=== PATIENT | male | born 1975 | race Two or more races ===

== ENCOUNTER 2021-11-09 18:38 | Emergency (ER) | payer SELFPAY ==
--- NOTE | 2021-11-09 19:30 | NUR ---
CALLED PT FOR TRIAGE NO ANSWER
--- NOTE | 2021-11-09 19:41 | NUR ---
CALLED PT FOR TRIAGE NO ANSWER
== END 2021-11-09 20:00 | disposition left against medical advice (07) ==
LOC: ER 18:42
DX: Z53.21 Procedure and treatment not carried out due to patient leaving prior to being seen by health care provider (principal)

== ENCOUNTER 2022-01-15 16:03 | Emergency (ER) | payer OTHER ==
[~2022-01-15] VITALS: Ht 170.2 cm; Wt 95.3 kg
[2022-01-15 17:18] LABS: BASOPHILS # (AUTO) 0.1 K/uL (0.0-0.2); BASOPHILS % (AUTO) 0.9 % (0.0-2.0); EOSINOPHILS % (AUTO) 3.2 % (0.0-6.0); HEMATOCRIT 43 % (39-51); HEMOGLOBIN 14.5 g/dL (13.5-17.5); LYMPHOCYTES # (AUTO) 1.4 K/uL (0.8-4.8); LYMPHOCYTES % (AUTO) 22.3 % (20.0-44.0); MEAN CORPUSCULAR HGB CONC 34 g/dl (31.0-36.0); MEAN CORPUSCULAR VOLUME 95 fL (80-96); MONOCYTES # (AUTO) 0.5 K/uL (0.1-1.30); MONOCYTES % (AUTO) 7.5 % (2.0-12.0); NEUTROPHILS # (AUTO) 4.3 K/uL (1.8-8.9); NEUTROPHILS % (AUTO) 66.1 % (43.0-81.0); PLATELET COUNT (AUTO) 339 K/uL (150-450); RED BLOOD CELL COUNT(AUTO) 4.54 MIL/uL (4.5-6.0); WHITE BLOOD COUNT (AUTO) 6.4 K/uL (4.3-11.0)
[2022-01-15 17:44] LABS: CALCIUM, SERUM 8.9 mg/dL (8.5-10.1); CARBON DIOXIDE 32 mmol/L (21-32); CHLORIDE 102 mmol/L (98-107); CREATININE 0.9 mg/dL (0.6-1.3); GLUCOSE 97 mg/dL (74-106); POTASSIUM 3.4 mmol/L (3.5-5.1); SODIUM SERUM 140 mmol/L (136-145); UREA NITROGEN, BLOOD 12 mg/dL (7-18)
[2022-01-15 17:50] LABS: ALANINE AMINOTRANSFERASE 23 U/L (12-78); ALBUMIN 4.2 g/dL (3.4-5.0); ALCOHOL, BLOOD < 3 mg/dL (0-0); ALKALINE PHOSPHATASE 133 U/L (46-116); ASPARTATE AMINOTRANSFERASE 19 U/L (15-37); BILIRUBIN,DIRECT 0.1 mg/dL (0.0-0.2); BILIRUBIN,TOTAL 0.5 mg/dL (0.2-1.0); TOTAL PROTEIN, SERUM 8.4 g/dL (6.4-8.2)
[2022-01-15 17:53] LABS: ACETAMINOPHEN < 2 ug/ml (10-30)
[2022-01-15] MEDS ORDERED: POTASSIUM CHLORIDE 20 MEQ TAB.PRT.SR PO ONE ×2 (18:30→19:59)
[2022-01-15 19:55] LABS: BILIRUBIN,URINE NEGATIVE (NEGATIVE); COLOR,URINE YELLOW (YELLOW); LEUKOCYTE ESTERASE ,URINE NEGATIVE (NEGATIVE); NITRITE, URINE NEGATIVE (NEGATIVE); PH,URINE 6.5 (5.0-8.0); PROTEIN,URINE NEGATIVE (NEGATIVE); UGLUCOSE NEGATIVE (NEGATIVE); UROBILINOGEN,URINE 0.2 EU/dL (0.2)
--- NOTE | 2022-01-15 20:12 | NUR ---
PT RECEIVED IN ROOM ALREADY. AAOX4. NOT IN RESP DISTRESS. AMBULATORY. CAME IN FOR VOLUNTARY ADMISSION TP [[facility] FOR SUICIDAL THOUGHTS WITH PLAN TO JUMP INTO TRAFFIC. PT STATES THAT HE IS FEELING DEPRESSED. PT IS PLACED IN GOWN, BELONGINGS IN LOCKER AND SITTER WITHON SIGHT.
--- NOTE | 2022-01-16 05:41 | NUR ---
PT ACCEPTED AT [facility] UNDER THE CARE OD BELINDA WALTERS. CALL [phone]
--- NOTE | 2022-01-16 05:42 | NUR ---
TRANSPORTATION REQUESTED FROM [facility].
--- NOTE | 2022-01-16 05:43 | NUR ---
PER AISSATOU AT [facility] , PLEASE CALL [phone] ext. [phone] UNIT 1 FOR REPORT
--- NOTE | 2022-01-16 06:04 | NUR ---
REPORT GIVEN TO ROBB AT [facility]
[2022-01-16 08:15] VITALS: BP 136/88
--- NOTE | 2022-01-16 09:50 | NUR ---
[facility] AT BEDSIDE FOR AUDIT OFFICER.
== END 2022-01-16 09:51 ==
LOC: ER 16:05
DX: R45.851 Suicidal ideations (principal); F20.9 Schizophrenia, unspecified; Z20.822 Contact with and (suspected) exposure to COVID-19; Z91.51 Personal history of suicidal behavior; F17.210 Nicotine dependence, cigarettes, uncomplicated; Z59.00 Homelessness unspecified; E87.6 Hypokalemia; F32.A Depression, unspecified
CPT/HCPCS: 36415; 80048; 80076; 80143; 80307; 80320; 81003; 85025; 87426; 99285; C9803; G0480

== ENCOUNTER 2022-03-06 03:39 | Emergency (ER) | payer OTHER ==
[~2022-03-06] VITALS: Ht 167.6 cm; Wt 77.1 kg
--- NOTE | 2022-03-06 04:12 | NUR ---
CALLED TO TRIAGE NO ANSWER.
--- NOTE | 2022-03-06 05:30 | NUR ---
PATIENT BIBSELF C/O + SI WITH PLAN TO RUN INTO TRAFFIC, WANTING VOL PSYCH ADMIT. PATIENT IS A/O X 4, RR EVEN AND UNLABORED, NO SOB NOTED, VSS. PATIENT TAKEN TO ER BED 18. PATIENTS BELONGINGS COLLECTED AND PLACED IN LOCKER. PATIENT PLACED IN HOSPITAL GOWN. PATIENT SKIN INTACT, AMBULATES WITH STEADY GAIT. WILL CONTINUE TO MONITOR.
--- NOTE | 2022-03-06 05:45 | NUR ---
PT UNABLE TO PROVIDE URINE, WILL FOLLOW UP
--- NOTE | 2022-03-06 05:45 | NUR ---
COVID SWAB COLLECTED
[2022-03-06 06:15] LABS: BASOPHILS # (AUTO) 0.1 K/uL (0.0-0.2); EOSINOPHILS % (AUTO) 1.7 % (0.0-6.0); HEMATOCRIT 43 % (39-51); HEMOGLOBIN 14.4 g/dL (13.5-17.5); LYMPHOCYTES # (AUTO) 1.5 K/uL (0.8-4.8); LYMPHOCYTES % (AUTO) 27.6 % (20.0-44.0); MEAN CORPUSCULAR HGB CONC 34 g/dl (31.0-36.0); MEAN CORPUSCULAR VOLUME 94 fL (80-96); MONOCYTES # (AUTO) 0.6 K/uL (0.1-1.30); MONOCYTES % (AUTO) 10.4 % (2.0-12.0); NEUTROPHILS # (AUTO) 3.2 K/uL (1.8-8.9); NEUTROPHILS % (AUTO) 59.3 % (43.0-81.0); PLATELET COUNT (AUTO) 307 K/uL (150-450); RED BLOOD CELL COUNT(AUTO) 4.54 MIL/uL (4.5-6.0); WHITE BLOOD COUNT (AUTO) 5.4 K/uL (4.3-11.0)
[2022-03-06 06:32] LABS: ALANINE AMINOTRANSFERASE 24 U/L (12-78); ALBUMIN 3.8 g/dL (3.4-5.0); ALKALINE PHOSPHATASE 129 U/L (46-116); ASPARTATE AMINOTRANSFERASE 28 U/L (15-37); BILIRUBIN,DIRECT 0.1 mg/dL (0.0-0.2); BILIRUBIN,TOTAL 0.6 mg/dL (0.2-1.0); CALCIUM, SERUM 9.1 mg/dL (8.5-10.1); CARBON DIOXIDE 31 mmol/L (21-32); CHLORIDE 100 mmol/L (98-107); CREATININE 0.9 mg/dL (0.6-1.3); GLUCOSE 98 mg/dL (74-106); SODIUM SERUM 136 mmol/L (136-145); TOTAL PROTEIN, SERUM 8.1 g/dL (6.4-8.2); UREA NITROGEN, BLOOD 10 mg/dL (7-18)
[2022-03-06 06:35] LABS: ACETAMINOPHEN < 0 ug/ml (10-30); ALCOHOL, BLOOD < 3 mg/dL (0-0)
--- NOTE | 2022-03-06 07:04 | NUR ---
URINE COLLECTED SENT TO LAB
[2022-03-06 07:18] LABS: BILIRUBIN,URINE NEGATIVE (NEGATIVE); COLOR,URINE YELLOW (YELLOW); LEUKOCYTE ESTERASE ,URINE NEGATIVE (NEGATIVE); NITRITE, URINE NEGATIVE (NEGATIVE); PROTEIN,URINE NEGATIVE (NEGATIVE); UGLUCOSE NEGATIVE (NEGATIVE); UROBILINOGEN,URINE 0.2 EU/dL (0.2)
--- NOTE | 2022-03-06 09:00 | NUR ---
Atiya hameed in [facility] - 03/06/22 at 1315 by NUBIA Patient verbalized "i am not suicidal".
--- NOTE | 2022-03-06 09:04 | NUR ---
Note yoseph in ED - 03/06/22 at 1315 by NUBIA Patient given written and verbal discharge instructions. Patient verbalizes understanding of instructions. Patient is ambulatory with steady gait. Refuses offer of penitentiary placement. Patient given list of available shelters in surrounding area.
--- NOTE | 2022-03-06 15:54 | NUR ---
ACCEPTED AT [facility], BY DR BONILLA, RN FOR [phone], ETA 30 MINUTES
[2022-03-06 16:18] VITALS: BP 129/81
== END 2022-03-06 16:56 ==
LOC: ER 03:44
DX: R45.851 Suicidal ideations (principal); Z59.00 Homelessness unspecified; F20.9 Schizophrenia, unspecified; F17.200 Nicotine dependence, unspecified, uncomplicated
CPT/HCPCS: 36415; 80048; 80076; 80143; 80307; 80320; 81003; 85025; 87426; 99285; C9803; G0480